=== PATIENT | male | born 1965 | race Caucasian/White ===

== ENCOUNTER 2023-01-12 16:47 | Emergency (ER) | payer MEDICAID ==
[~2023-01-12] VITALS: Ht 167.6 cm; Wt 72.6 kg
[2023-01-12 17:07] VITALS: BP 105/72; PULSE 81; RESP 18; TEMP 98; O2SAT 98
[2023-01-12] MEDS ORDERED: BACITRACIN OINT 500 UNITS/GM PKT TP ONE ×2 (17:23→19:00)
[2023-01-12] MEDS ORDERED: BACI-418 TP (17:39)
[2023-01-12] MEDS ORDERED: AMOX1TAB8 PO (17:39)
[2023-01-12] MEDS ORDERED: IBUPROFEN 600 MG TAB PO SCH (17:51)
[2023-01-12] MEDS ORDERED: IBUP-2213 PO (17:52)
[2023-01-12] MEDS ORDERED: IBUPROFEN 600 MG TAB ONE (18:03)
[2023-01-12 18:30] VITALS: BP 110/75; PULSE 80; RESP 18; TEMP 98; O2SAT 99
== END 2023-01-12 18:30 | disposition home or self-care (01) ==
LOC: MED 16:47
DX: S51.831A Puncture wound without foreign body of right forearm, initial encounter (principal); W54.0XXA Bitten by dog, initial encounter; Y93.89 Activity, other specified; Y92.89 Other specified places as the place of occurrence of the external cause; Y99.8 Other external cause status
CPT/HCPCS: 99283